=== PATIENT | male | born 1995 | race Caucasian/White ===

== ENCOUNTER 2017-06-23 18:47 | Emergency (ER) | payer SELFPAY ==
[~2017-06-23] VITALS: Ht 170.2 cm; Wt 72.6 kg
[~2017-06-23 18:47] MED LIST: NAPR500E1 PO
[2017-06-23 19:00] VITALS: BP 114/74
--- NOTE | 2017-06-23 19:00 | NUR ---
TO LOBBY AMBULATORY, IN STABLE CONDTION, A/W FOR BED ERMD NOTED
--- NOTE | 2017-06-23 21:16 | NUR ---
Patient to [facility]. RN evaluating patient.
--- NOTE | 2017-06-23 21:20 | NUR ---
22/M CAME IN W C/O PRODUCTIVE COUGH WITH GREEN SPUTUM,NASAL CONGESTION, BODY MALAISE, HEADACHE X 10 DAYS. [place] [facility] [place] MEDS, DENIES FURTHER N/V AT THIS TIME. ALL LUNG SOUNDS CBTA, 20RR EVEN AND UNLABORED, WITH COUGH AND NASAL CONGESTION. CURRENTLY AFEBRILE. DENIES PMH/RX/OTC
--- NOTE | 2017-06-23 21:30 | NUR ---
DPatient discharged with v/s stable. Written and verbal after care instructions given and explained. Patient alert, oriented and verbalized understanding of instructions. Ambulatory with steady gait. All questions addressed prior to discharge. ID band removed. Patient advised to follow up with PMD. Rx of CODEINE AND IBUPROFEN given. Patient educated on indication of medication including possible reaction and side effects. Opportunity to ask questions provided and answered.
[2017-06-23 21:32] VITALS: BP 134/72
== END 2017-06-23 21:30 | disposition home or self-care (01) ==
LOC: MED 18:47
DX: J06.9 Acute upper respiratory infection, unspecified (principal); Z79.899 Other long term (current) drug therapy
CPT/HCPCS: 71010; 99283

== ENCOUNTER 2020-05-19 14:50 | Emergency (ER) | payer BC, SELFPAY ==
[~2020-05-19] VITALS: Ht 170.2 cm; Wt 77.1 kg
[2020-05-19 14:57] VITALS: BP 141/73
--- NOTE | 2020-05-19 15:04 | NUR ---
PATIENT PRESENTS TO ED WITH COUGH, HEADACHE AND BODYACHES FOR ABOUT 4 DAYS.DENIES N/V/D; SKIN IS PINK/WARM/DRY; AAOX4 WITH EVEN AND STEADY GAIT; LUNGS CLEAR BL; HR EVEN AND REGULAR; PT DENIES ANY FEVER, CP, SOB, OR COUGH AT THIS TIME; PATIENT STATES PAIN OF 0/10 AT THIS TIME; VSS; PATIENT POSITIONED FOR COMFORT; HOB ELEVATED; BEDRAILS UP X2; BED DOWN. ER MD MADE AWARE OF PT STATUS.
[2020-05-19 15:42] VITALS: BP 141/73
--- NOTE | 2020-05-19 15:42 | NUR ---
Patient discharged with v/s stable. Written and verbal after care instructions given and explained. Patient alert, oriented and verbalized understanding of instructions. Ambulatory with steady gait. All questions addressed prior to discharge. ID band removed. Patient advised to follow up with PMD. Rx of ZYRTEC AND ACETAMINOPHEN given. Patient educated on indication of medication including possible reaction and side effects. Opportunity to ask questions provided and answered.
--- NOTE | 2020-05-21 11:26 | NUR ---
+ covid result received from lab. Copy of result will be given to Jo Ann at infection prevention
== END 2020-05-19 15:42 | disposition home or self-care (01) ==
LOC: MED 14:50
DX: J06.9 Acute upper respiratory infection, unspecified (principal); Z20.828 Contact with and (suspected) exposure to other viral communicable diseases; Z79.899 Other long term (current) drug therapy
CPT/HCPCS: 99283; U0003